=== PATIENT | male | born 1940 | race Caucasian/White ===

== ENCOUNTER 2018-04-29 16:31 | Inpatient (IN) | payer MEDICARE ==
[2018-04-29 16:58] VITALS: BMI 24.4
[2018-04-29] MEDS ORDERED: Albuterol-Ipratrop 3 mg / 0.5 (3 ml) UD IH STA (17:23)
--- NOTE | 2018-04-29 17:41 | ED PDOC ---
Arrival/HPI - General Chief Complaint: Shortness Of Breath Time Seen by Provider: 04/29/18 17:08 Historian: Patient - History of Present Illness Narrative History of Present Illness (Text): 04/29/18 17:23 77 year old male, with past medical history of CAD s/p stent placement and asthma, presents to the ED complaining of chest pain and shortness of breath since 1 hour prior to arrival. Patient describes the pain as pressure sensation with no radiation of symptoms. Patient denies taking his aspirin today. Patient informs associated diarrhea. Patient worries symptoms maybe secondary to taking Levoquin at home, which he started last week for productive cough. Patient currently denies any other somatic complaints. Patient denies any fevers, chills, headache, dizziness, abdominal pain, nausea, vomiting, urinary output changes, back pain, neck pain, or any other complaints. PMD: Dr. David Guadarrama Time/Duration: 1 hour Symptom Onset: Gradual Symptom Course: Unchanged Quality: Pressure Activities at Onset: Light Context: Home Past Medical History - Provider Review Nursing Documentation Reviewed: Yes - Infectious Disease Hx of Infectious Diseases: None - Cardiac Hx Cardiac Disorders: No - Pulmonary Hx Respiratory Disorders: No - Neurological Hx Neurological Disorder: No - HEENT Hx HEENT Disorder: No - Renal Hx Renal Disorder: No - Endocrine/Metabolic Hx Endocrine Disorders: No - Hematological/Oncological Hx Blood Disorders: No - Integumentary Hx Dermatological Disorder: No - Musculoskeletal/Rheumatological Hx Musculoskeletal Disorders: No - Gastrointestinal Hx Gastrointestinal Disorders: No - Genitourinary/Gynecological Hx Genitourinary Disorders: No - Psychiatric Hx Psychophysiologic Disorder: No Hx Substance Use: No - Surgical History Hx Coronary Stent: Yes Family/Social History - Physician Review Nursing Documentation Reviewed: Yes Family/Social History: No Known Family HX Smoking Status: Cigar Hx Alcohol Use: No Hx Substance Use: No Allergies/Home Meds Allergies/Adverse Reactions: Allergies Unobtainable Allergy (Verified 04/29/18 17:05) Home Medications: Home Meds Medication Instructions Recorded Confirmed No Known Home Med 04/29/18 04/29/18 Review of Systems - Physician Review All systems were reviewed & negative as marked: Yes - Review of Systems Constitutional: absent: Fevers Respiratory: SOB Cardiovascular: Chest Pain Gastrointestinal: Diarrhea. absent: Abdominal Pain, Nausea, Vomiting Genitourinary Male: absent: Dysuria, Urinary Output Changes Musculoskeletal: absent: Back Pain, Neck Pain Skin: absent: Rash Neurological: absent: Headache, Dizziness Psychiatric: absent: Anxiety Physical Exam Vital Signs Reviewed: Yes Vital Signs Temp Pulse Resp BP Pulse Ox 04/29/18 17:04 98.0 F 73 18 143/67 98 Temperature: Afebrile Blood Pressure: Normal Pulse: Regular Respiratory Rate: Normal Appearance: Positive for: Well-Appearing, Non-Toxic, Comfortable Pain Distress: None Mental Status: Positive for: Alert and Oriented X 3 - Systems Exam Head: Present: Atraumatic, Normocephalic Pupils: Present: PERRL Extroacular Muscles: Present: EOMI Conjunctiva: Present: Normal Mouth: Present: Moist Mucous Membranes Neck: Present: Normal Range of Motion. No: Meningeal Signs, MIDLINE TENDERNESS Respiratory/Chest: Present: Good Air Exchange, Wheezes (Mild wheezes at the bases bilaterally). No: Respiratory Distress, Accessory Muscle Use Cardiovascular: Present: Regular Rate and Rhythm, Normal S1, S2. No: Murmurs Abdomen: No: Tenderness, Distention, Peritoneal Signs Back: Present: Normal Inspection. No: CVA Tenderness, Midline Tenderness Upper Extremity: Present: Normal Inspection, Normal ROM, NORMAL PULSES. No: Cyanosis, Edema Lower Extremity: Present: Edema (2+ pitting edema bilaterally), NORMAL PULSES, Neurovascularly Intact. No: Tenderness Neurological: Present: GCS=15, CN II-XII Intact, Speech Normal Skin: Present: Warm, Dry, Normal Color. No: Rashes Psychiatric: Present: Alert, Oriented x 3, Normal Insight, Normal Concentration Medical Decision Making ED Course and Treatment: 04/29/18 17:23 Impression: 77 year old male presents to the ED for evaluation of chest pain and shortness of breath. x1 stent previously. No fall. Pt notes recent abx w/ diarrhea. No nausea or vomiting. GALLARDO and mild b/l pitting edema. No hx of blood clots. Plan: -- EKG -- Labs -- CXR -- Albuterol -- Reassess and disposition Prior Visits: Notes and results from previous visits were reviewed. Progress Notes: 04/29/18 17:23 EKG reviewed, shows NSR at 82 bpm. No STEMI. 04/29/18 19:32 6k BNP trop unremarkable Cr 2.3, unk baseline, K unremarkable, making urine per pt. Hgb 6.1, consent done, 2 units of blood ordered. No blood thinners No dark or bloody stool or trauma. Accepted by Dr. Palumbo to her service CXR unremarkable. ASA ordered. - RAD Interpretation Radiology Orders: 04/29/18 17:23 CHEST TWO VIEWS (PA/LAT) [RAD] Stat - Medication Orders Current Medication Orders: Discontinued Medications Albuterol/Ipratropium (Duoneb 3 Mg/0.5 Mg (3 Ml) Ud) 3 ml IH STAT STA Stop: 04/29/18 17:24 Last Admin: 04/29/18 17:37 Dose: 3 ml - Scribe Statement The provider has reviewed the documentation as recorded by the Scribe Lexx Vasquez. All medical record entries made by the Scribe were at my direction and personally dictated by me. I have reviewed the chart and agree that the record accurately reflects my personal performance of the history, physical exam, medical decision making, and the department course for this patient. I have also personally directed, reviewed, and agree with the discharge instructions and disposition. Disposition/Present on Arrival - Present on Arrival Any Indicators Present on Arrival: No History of DVT/PE: No History of Uncontrolled Diabetes: No Urinary Catheter: No History of Decub. Ulcer: No History Surgical Site Infection Following: None - Disposition Have Diagnosis and Disposition been Completed?: Yes Diagnosis: Anemia, CHF (congestive heart failure) Disposition Time: 19:34 Patient Problems: Current Active Problems Problem Status Onset Anemia Acute CHF (congestive heart failure) Acute Condition: GOOD
[2018-04-29 17:56] LABS: BASO # 0.1 K/mm3 (0.0-2.0); BASO % 0.7 % (0.0-3.0); EOS # 0.2 (0.0-0.7); EOS % 1.4 % (1.5-5.0); LYMPH # 0.9 (1.2-3.4); LYMPH % 6.7 % (22.0-35.0); MEAN CELL VOLUME 77.6 fl (80.0-105.0); MEAN CORPUSCULAR HEMOGLOBIN 24.8 pg (25.0-35.0); MEAN PLATELET VOLUME 9.3 fl (7.0-11.0); MONO # 0.7 (0.1-0.6); RBC 2.54 10^6/uL (3.5-6.1); RED CELL DISTRIBUTION WIDTH 34.2 % (11.5-14.5)
[2018-04-29 18:09] LABS: ALB/GLOB RATIO 1.4 (1.1-1.8); CALCIUM 8.2 mg/dL (8.4-10.5)
[2018-04-29 18:15] LABS: HEMOGLOBIN 6.3 g/dL (14.0-18.0)
[2018-04-29 18:19] LABS: TROPONIN I 0.06 ng/mL
[2018-04-29 18:54] LABS: INR 1.29; PARTIAL THROMBOPLASTIN TIME 35.4 Seconds (26.9-38.3); PROTHROMBIN TIME 14.3 SECONDS (9.4-12.5)
--- NOTE | 2018-04-29 20:33 | CP.PCM.HP ---
<DenysJohnny - Last Filed: 04/30/18 05:29> History of Present Illness - History of Present Illness History of Present Illness: Johnny Mcfarlane, PGY1 H&P for Dr. Palumbo cc: "chest pain and shortness of breath" Patient is a 77 year old male with PMHx of CAD (stent placed 10 years ago), Asthma, SERENA, ?CKD, and cataracts who presented to the ED complaining of chest pain and shortness of breath for 2 hours in duration. In the ED, Vitals: Temp 98, HR 73, RR 18, BP 143/67, SaO2 98%. Medical team was consulted for evaluation. Patient describes the chest pain as pressure-like and located mid- sternum and left sided. He says that it occasionally radiates to his arm. The chest pain is not associated with exertion. Patient says that he has had episodes of chest pain in the past. He also endorses shortness of breath. He said that he noticed increased swelling in his legs. He also notes orthopnea. Patient said he was sick recently with cough and sputum production and went to his PMD who treated him with PO antibiotic (Levaquin) for which he started to have multiple episodes of diarrhea. He said he had episodes of non-bloody diarrhea x3 days for several days. He is no longer taking his Levaquin. Patient is also a poor historian. 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 He denies any history of cancer, recent surgeries, or recent sedentary lifestyle. He has never had a colonoscopy. A full 12 point ROS was conducted and unremarkable except as stated above. PMD: Dr. David Guadarrama PMHx: CAD (stent placed 10 years ago), Asthma, SERENA, ?CKD, and cataracts PSHx: left shoulder surgery (4 years ago) Meds: see MAR Allergies: NKDA SocialHx: denies smoking cigarettes but occasionally smokes cigars. Drinks EtOH socially. Denies recreational drug use. Lives in [place] with family. FamHx: non-contributory Present on Admission - Present on Admission Any Indicators Present on Admission: No Review of Systems - Review of Systems All systems: reviewed and no additional remarkable complaints except (as per HPI.) Past Patient History - Infectious Disease Hx of Infectious Diseases: None - Past Social History Smoking Status: Cigar - CARDIAC Hx Cardiac Disorders: No - PULMONARY Hx Respiratory Disorders: No - NEUROLOGICAL Hx Neurological Disorder: No - HEENT Hx HEENT Problems: No - RENAL Hx Chronic Kidney Disease: No - ENDOCRINE/METABOLIC Hx Endocrine Disorders: No - HEMATOLOGICAL/ONCOLOGICAL Hx Blood Disorders: No - INTEGUMENTARY Hx Dermatological Problems: No - MUSCULOSKELETAL/RHEUMATOLOGICAL Hx Musculoskeletal Disorders: No - GASTROINTESTINAL Hx Gastrointestinal Disorders: No - GENITOURINARY/GYNECOLOGICAL Hx Genitourinary Disorders: No - PSYCHIATRIC Hx Psychophysiologic Disorder: No Hx Substance Use: No - SURGICAL HISTORY Hx Coronary Stent: Yes Meds Allergies/Adverse Reactions: Allergies Allergy/AdvReac Type Severity Reaction Status Date / Time Unobtainable Allergy Verified 04/29/18 17:05 Physical Exam - Constitutional Appears: No Acute Distress - Head Exam Head Exam: ATRAUMATIC, NORMAL INSPECTION, NORMOCEPHALIC - Eye Exam Eye Exam: EOMI Pupil Exam: PERRL Additional comments: Pale conjunctiva - ENT Exam ENT Exam: Mucous Membranes Moist - Neck Exam Neck exam: Positive for: Normal Inspection - Respiratory Exam Respiratory Exam: Clear to Auscultation Bilateral. absent: Accessory Muscle Use, Chest Wall Tenderness, Rales, Rhonchi, Wheezes - Cardiovascular Exam Cardiovascular Exam: RRR, +S1, +S2 - GI/Abdominal Exam GI & Abdominal Exam: Normal Bowel Sounds, Soft. absent: Bruit, Firm, Guarding, Hernia, Rigid, Tenderness - Extremities Exam Extremities exam: Positive for: pedal pulses present. Negative for: calf tenderness Additional comments: Swelling of the left lower extremity in comparison to the right. Mild pitting edema, +1 bilaterally. - Back Exam Back exam: NORMAL INSPECTION - Neurological Exam Neurological exam: Alert, Normal Gait, Oriented x3, Reflexes Normal - Psychiatric Exam Psychiatric exam: Normal Affect, Normal Mood - Skin Skin Exam: Dry, Intact, Normal Color, Warm Results - Vital Signs Recent Vital Signs: Last Vital Signs Temp 98.0 F 04/29/18 20:18 Pulse 81 04/29/18 20:18 Resp 18 04/29/18 20:18 BP 140/59 L 04/29/18 20:18 Pulse Ox 97 04/29/18 20:18 - Labs Result Diagrams: 04/30/18 02:50 04/29/18 17:50 Labs: Laboratory Results - last 24 hr 04/29/18 04/29/18 04/29/18 17:50 17:50 18:00 WBC 14.0 H RBC 2.54 L Hgb 6.3 L* Hct 19.7 L* MCV 77.6 L MCH 24.8 L MCHC 32.0 RDW 34.2 H Plt Count 436 MPV 9.3 Neut % (Auto) 86.2 H Lymph % (Auto) 6.7 L Hancock % (Auto) 5.0 Eos % (Auto) 1.4 L Baso % (Auto) 0.7 Lymph # (Auto) 0.9 L Hancock # (Auto) 0.7 H Eos # (Auto) 0.2 Baso # (Auto) 0.10 Absolute Neuts (auto) 12.07 H PT 14.3 H INR 1.29 APTT 35.4 Sodium 135 Potassium 5.2 H Chloride 106 Carbon Dioxide 21 Anion Gap 13 BUN 41 H Creatinine 2.3 H Est GFR ( Amer) 34 Est GFR (Non-Af Amer) 28 Random Glucose 100 Calcium 8.2 L Total Bilirubin 0.4 AST 35 ALT 13 Alkaline Phosphatase 90 Troponin I 0.06 NT-Pro-B Natriuret Pep 5990 H Total Protein 6.9 Albumin 4.0 Globulin 2.8 Albumin/Globulin Ratio 1.4 Crossmatch BBK History Checked 04/29/18 19:00 WBC RBC Hgb Hct MCV MCH MCHC RDW Plt Count MPV Neut % (Auto) Lymph % (Auto) Hancock % (Auto) Eos % (Auto) Baso % (Auto) Lymph # (Auto) Hancock # (Auto) Eos # (Auto) Baso # (Auto) Absolute Neuts (auto) PT INR APTT Sodium Potassium Chloride Carbon Dioxide Anion Gap BUN Creatinine Est GFR ( Amer) Est GFR (Non-Af Amer) Random Glucose Calcium Total Bilirubin AST ALT Alkaline Phosphatase Troponin I NT-Pro-B Natriuret Pep Total Protein Albumin Globulin Albumin/Globulin Ratio Crossmatch See Detail BBK History Checked No verified bt Assessment & Plan - Assessment and Plan (Free Text) Assessment: Patient is a 77 year old male with PMHx of CAD (stent placed 10 years ago), Asthma, SERENA, ?CKD, and cataracts who presented to the ED complaining of chest pain and shortness of breath for 2 hours in duration. Patient will be admitted for Chest Pain r/o ACS, Shortness of Breath 2/2 New Onset CHF Exacerbation, and Symptomatic Anemia. Plan: Chest Pain r/o ACS - Initial troponin was 0.6; trend trops q6 - ASA 81mg daily - EKG: NSR at [address] or T wave changes. - TSH - Lipid panel - Hemoglobin A1c - CXR: no active cardiopulmonary disease. Hyperinflated lungs and mild flattening of diaphragm. Shortness of Breath 2/2 New Onset CHF Exacerbation - Lasix 20mg IV q12 - duonebs prn - BNP 5990 - nasal cannula prn - daily weights - strict ins/outs - Echo - Cardiology on consult (Dr. Ashley) - LE venous doppler to rule out DVT given left lower ext swelling - D-dimer; consider ordering V/Q scan given ALFREDO if positive D-dimer - No history of previous echo Symptomatic Anemia - iron studies ordered - Given Hgb 6.3 on admission, will transfuse x2 units pRBC - Goal is to maintain Hgb > 9 considering patient has CAD - GI consulted (Dr. Venegas) to r/o GI malignancy - trend cbc q4 ALFREDO with ?CKD Hx - BUN/Cr is 41/2.3 - monitor kidney function - avoid nephrotoxic agents - Nephro consulted (Dr. Hodges) Diarrhea 2/2 Recent Antibiotic Use - c. diff toxin ordered - Recently treated with Levaquin PO Hx CAD - c/w ASA 81mg daily GI ppx: ptx Diet: Renal diet Dispo: Patient will be monitored on telemetry. Pending x2 units pRBC transfusion. Monitor H/H. Case was discussed and reviewed with Attending Physician, Dr. Palumbo <Anh Palumbo - Last Filed: 04/30/18 06:23> Results - Vital Signs Recent Vital Signs: Last Vital Signs Temp 98.5 F 04/30/18 01:14 Pulse 78 04/30/18 01:14 Resp 20 04/30/18 01:14 BP 155/71 H 04/30/18 01:14 Pulse Ox 97 04/29/18 20:18 - Labs Result Diagrams: 04/30/18 02:50 04/29/18 17:50 Labs: Laboratory Results - last 24 hr 04/29/18 04/29/18 04/29/18 17:50 17:50 18:00 WBC 14.0 H RBC 2.54 L Hgb 6.3 L* Hct 19.7 L* MCV 77.6 L MCH 24.8 L MCHC 32.0 RDW 34.2 H Plt Count 436 MPV 9.3 Neut % (Auto) 86.2 H Lymph % (Auto) 6.7 L Hancock % (Auto) 5.0 Eos % (Auto) 1.4 L Baso % (Auto) 0.7 Lymph # (Auto) 0.9 L Hancock # (Auto) 0.7 H Eos # (Auto) 0.2 Baso # (Auto) 0.10 Absolute Neuts (auto) 12.07 H PT 14.3 H INR 1.29 APTT 35.4 D-Dimer, Quantitative Sodium 135 Potassium 5.2 H Chloride 106 Carbon Dioxide 21 Anion Gap 13 BUN 41 H Creatinine 2.3 H Est GFR ( Amer) 34 Est GFR (Non-Af Amer) 28 Random Glucose 100 Calcium 8.2 L Total Bilirubin 0.4 AST 35 ALT 13 Alkaline Phosphatase 90 Troponin I 0.06 NT-Pro-B Natriuret Pep 5990 H Total Protein 6.9 Albumin 4.0 Globulin 2.8 Albumin/Globulin Ratio 1.4 Triglycerides Cholesterol LDL Cholesterol Direct HDL Cholesterol TSH 3rd Generation Blood Type Blood Type Confirm Antibody Screen Crossmatch BBK History Checked 04/29/18 04/29/18 04/29/18 19:00 20:04 22:00 WBC RBC Hgb Hct MCV MCH MCHC RDW Plt Count MPV Neut % (Auto) Lymph % (Auto) Hancock % (Auto) Eos % (Auto) Baso % (Auto) Lymph # (Auto) Hancock # (Auto) Eos # (Auto) Baso # (Auto) Absolute Neuts (auto) PT INR APTT D-Dimer, Quantitative Sodium Potassium Chloride Carbon Dioxide Anion Gap BUN Creatinine Est GFR ( Amer) Est GFR (Non-Af Amer) Random Glucose Calcium Total Bilirubin AST ALT Alkaline Phosphatase Troponin I NT-Pro-B Natriuret Pep Total Protein Albumin Globulin Albumin/Globulin Ratio Triglycerides 64 Cholesterol 106 L LDL Cholesterol Direct 67 HDL Cholesterol 29 TSH 3rd Generation Blood Type O POSITIVE Blood Type Confirm O POSITIVE Antibody Screen Negative Crossmatch See Detail BBK History Checked No verified bt 04/29/18 04/29/18 22:00 22:30 WBC RBC Hgb Hct MCV MCH MCHC RDW Plt Count MPV Neut % (Auto) Lymph % (Auto) Hancock % (Auto) Eos % (Auto) Baso % (Auto) Lymph # (Auto) Hancock # (Auto) Eos # (Auto) Baso # (Auto) Absolute Neuts (auto) PT INR APTT D-Dimer, Quantitative 309 H Sodium Potassium Chloride Carbon Dioxide Anion Gap BUN Creatinine Est GFR ( Amer) Est GFR (Non-Af Amer) Random Glucose Calcium Total Bilirubin AST ALT Alkaline Phosphatase Troponin I NT-Pro-B Natriuret Pep Total Protein Albumin Globulin Albumin/Globulin Ratio Triglycerides Cholesterol LDL Cholesterol Direct HDL Cholesterol TSH 3rd Generation 0.22 L Blood Type Blood Type Confirm Antibody Screen Crossmatch BBK History Checked Attending/Attestation - Attestation I have personally seen and examined this patient.: Yes I have fully participated in the care of the patient.: Yes I have reviewed all pertinent clinical information: Yes Notes (Text): 04/30/18 01:17 Pt seen with mary silva by the bedside. Case discussed in detail Agree with documentation,assessment and plan of treatment
[2018-04-29] MEDS ORDERED: Albuterol-Ipratrop 3 mg / 0.5 (3 ml) UD IH PRN (21:12)
--- NOTE | 2018-04-29 22:45 | CARD ---
APPROVED REPORT Date of service: 04/29/2018 EKG Measurement Heart [id number] <Conclusion> Sinus rhythm with a single PVC Otherwise normal ECG
[2018-04-29 22:50] LABS: HDL CHOLESTEROL 29 mg/dL (29-60)
[2018-04-29 23:00] LABS: LDL CHOLESTEROL 67 mg/dL (0-129)
[2018-04-30 03:07] LABS: MEAN CELL VOLUME 78.6 fl (80.0-105.0); MEAN PLATELET VOLUME 8.8 fl (7.0-11.0); RBC 2.62 10^6/uL (3.5-6.1); RED CELL DISTRIBUTION WIDTH 32.4 % (11.5-14.5); WHITE BLOOD COUNT 12.4 10^3/uL (4.5-11.0)
[2018-04-30 03:18] LABS: HEMOGLOBIN 6.8 g/dL (14.0-18.0)
[2018-04-30] MEDS ORDERED: Pantoprazole 40 mg EC Tab PO SCH (06:00)
--- NOTE | 2018-04-30 07:57 | RAD ---
Date of service: 04/29/2018 HISTORY: cp COMPARISON: No prior. TECHNIQUE: Chest PA and lateral FINDINGS: LUNGS: No acute infiltrate appreciated bilaterally. There is an increased AP chest diameter and lamina diaphragms in a pattern suggestive of COPD. PLEURA: No significant pleural effusion identified. No pneumothorax apparent. CARDIOVASCULAR: Calcific atherosclerotic changes are seen related to the thoracic aorta. Normal cardiac size. No pulmonary vascular congestion. OSSEOUS STRUCTURES: No significant abnormalities. VISUALIZED UPPER ABDOMEN: Normal. OTHER FINDINGS: None. IMPRESSION: COPD. No definite acute infiltrate. No pulmonary vascular congestion.
[2018-04-30] MEDS ORDERED: Barium Sulfate Susp 2.1% w/v, 2.0% w/w 450 mL Bottle PO ONE (10:07)
[2018-04-30 10:08] LABS: HEMOGLOBIN 7.4 g/dL (14.0-18.0); MEAN CELL VOLUME 80.1 fl (80.0-105.0); MEAN CORPUSCULAR HEMOGLOBIN 25.9 pg (25.0-35.0); MEAN CORPUSCULAR HGB CONC 32.3 g/dl (31.0-37.0); MEAN PLATELET VOLUME 9.4 fl (7.0-11.0); RBC 2.86 10^6/uL (3.5-6.1); RED CELL DISTRIBUTION WIDTH 30.7 % (11.5-14.5); WHITE BLOOD COUNT 11.7 10^3/uL (4.5-11.0)
[2018-04-30] MEDS ORDERED: Sodium Chloride 0.9% 1,000 ML IV SCH (10:15)
[2018-04-30 10:16] LABS: ALB/GLOB RATIO 1.4 (1.1-1.8); ALBUMIN 3.7 g/dL (3.0-4.8); CALCIUM 7.9 mg/dL (8.4-10.5)
[2018-04-30 10:23] LABS: TROPONIN I 0.05 ng/mL
--- NOTE | 2018-04-30 10:39 | CON ---
DATE: 04/30/2018 REQUESTING PHYSICIAN: Dr. Hatch REASON FOR CONSULTATION: Dyspnea and congestive heart failure. HISTORY: This is a 77-year-old man with a history of coronary artery disease, status post PCI a number of years ago, who presented to the emergency room with worsening dyspnea and chest discomfort. He was recently treated with antibiotic for presumed bronchitis. It is unclear as to his compliance with followup in the past. He reportedly has had a history of renal insufficiency. He was treated with IV Lasix in the emergency room and feels somewhat better. He reportedly has a history of chronic asthma as well as sleep apnea. The details of his prior cardiac history are unavailable at the time of his admission. PAST MEDICAL HISTORY: Notable for the problems mentioned above. He also has cataracts and prior left shoulder surgery. MEDICATIONS: He cannot recall any of his medications from home. ALLERGIES: NO KNOWN ALLERGIES. SOCIAL HISTORY: He smokes cigars occasionally. He drinks alcohol rarely. He denies cigarette use. He is , lives with his family. FAMILY HISTORY: Both parents are from age-related illness. REVIEW OF SYSTEMS: Ten-point review of systems is notable mainly for the problems mentioned above. PHYSICAL EXAMINATION: GENERAL: He is an elderly man who appears comfortable at rest. VITAL SIGNS: His blood pressure is 128/60 with a pulse of 70 and sinus, respirations are 16. He is currently afebrile. HEENT: Normocephalic, atraumatic. NECK: Supple. No JVD noted. CHEST: Bilateral scattered rhonchi heard. No rales noted. HEART: PMI is displaced laterally with a systolic murmur present at the base as well as at the apex. ABDOMEN: Soft, nontender, normoactive bowel sounds. EXTREMITIES: 1+ ankle edema. SKIN: Warm and dry. PSYCHIATRIC: Normal mood and affect. NEUROLOGIC: Alert and oriented x3. No gross motor or sensory deficits notable. DIAGNOSTIC DATA: White count is 12.4, hemoglobin and hematocrit are 6.8 and 20.6 with an MCV of 78.6. Reticulocyte count is 1.35. PT and PTT of 14.3 and 35.4. Potassium 5.2. BUN and creatinine are 41 and 2.3. BNP 5990. Two troponins are negative. Cholesterol is 106 with an LDL of 67, HDL 29, triglycerides of 64. TSH 0.22. Chest x-ray reveals normal cardiac silhouette with hyperaeration consistent with COPD, no clear pulmonary vascular congestion is seen. Electrocardiogram reveals sinus rhythm with PVC, nonspecific ST-T abnormalities. IMPRESSION: 1. 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 2. Anemia, etiology uncertain. 3. Renal insufficiency, unclear of baseline. 4. Probable aortic stenosis. 5. Probable mitral regurgitation. 6. Rest of problems as noted. RECOMMENDATIONS: At this time, IV Lasix can be continued. Aggressive anemia evaluation is advised and transfusion should be considered. Attempts will be made to obtain records regarding his prior cardiac workup and eventual stress test will be recommended. An echocardiogram is pending and will be reviewed once performed. Given his history of coronary artery disease and questionable diastolic dysfunction, beta-matilde therapy will be initiated. We will continue to follow and make further recommendations as appropriate. Benitez Perez MD
--- NOTE | 2018-04-30 11:07 | US ---
HISTORY: Leg pain and swelling. Evaluate for DVT PHYSICIAN(S): Demarco López MD. TECHNIQUE: Duplex sonography and color-flow Doppler with graded compression were used to evaluate the deep venous systems of both lower extremities. FINDINGS: The visualized deep venous systems of both lower extremities are sonographically normal and compressible. Normal wave forms and augmentation are seen. There is no sonographic evidence for deep venous thrombosis in the visualized segments of both lower extremities. IMPRESSION: No sonographic evidence for deep venous thrombosis in the visualized segments of both lower extremities.
[2018-04-30 13:23] LABS: TRANSFERRIN 154.58 mg/dL (206-381)
[2018-04-30 14:17] LABS: IRON 48 ug/dL (45-180)
[2018-04-30] MEDS: Albuterol-Ipratrop 3 mg / 0.5 (3 ml) UD IH SCH ×2 (14:23→19:46)
[2018-04-30 14:26] LABS: % IRON SATURATION 22 % (20-55); TOTAL IRON BINDING CAPACITY 212 ug/dL (261-462)
[2018-04-30 14:27] LABS: FOLATE > 20.0 ng/mL
--- NOTE | 2018-04-30 14:51 | CARD ---
APPROVED REPORT Date of service: 04/30/2018 EXAM: Two-dimensional and M-mode echocardiogram with Doppler and color Doppler. INDICATION Congestive Heart Failure 2D DIMENSIONS Left Atrium (2D)4.2 (1.6-4.0cm)IVSd1.3 (0.7-1.1cm) LVDd4.6 (3.9-5.9cm)LVOT Diameter2.1 (1.8-2.4cm) PWd1.3 (0.7-1.1cm)LVDs3.4 (2.5-4.0cm) FS (%) 26.3 %LVEF (%)51.6 (>50%) M-Mode DIMENSIONS Aortic Root3.50 (2.2-3.7cm)Aortic Cusp Exc.1.30 (1.5-2.0cm) Aortic Valve AoV Peak Abfwelsr359.0cm/sAoV VTI60.0cmAO Peak GR.31mmHg LVOT Peak Vzszilkd414.0cm/sLVOT VTI27.00cmAO Mean GR.14mmHg URSULA (VMAX)1.64qh7OLO (VTI)1.56cm2 Mitral Valve MV E Pjocghot956.0cm/sMV A Ljudrmsr04.9cm/sE/A ratio1.3 TDI E/Lateral E'0.0E/Medial E'0.0 Tricuspid Valve TR Peak Rnazunlf829vb/sRAP [id number] Peak Gr.44mmHg [id number] LEFT VENTRICLE The left ventricle is normal size. There is borderline concentric left ventricular hypertrophy. The left ventricular function is normal. The left ventricular ejection fraction is within the normal range. There is normal LV segmental wall motion. Transmitral Doppler flow pattern is Grade II-pseudonormal filling dynamics. RIGHT VENTRICLE The right ventricle is normal size. There is normal right ventricular wall thickness. The right ventricular systolic function is normal. ATRIA The left atrium is borderline dilated. The right atrium is mildly dilated. AORTIC VALVE The aortic valve is mildly calcified. There is mild to moderate aortic regurgitation. There is mild valvular aortic stenosis. MITRAL VALVE The mitral valve is mildly thickened. Mitral regurgitation is moderate. TRICUSPID VALVE There is moderate tricuspid regurgitation. There is moderate pulmonary hypertension. PULMONIC VALVE The pulmonary valve is normal in structure. There is no pulmonic valvular regurgitation. GREAT VESSELS The aortic root is normal in size. PERICARDIAL EFFUSION There is no pericardial effusion. <Conclusion> There is borderline concentric left ventricular hypertrophy. The left ventricular function is normal. The left ventricular ejection fraction is within the normal range. There is normal LV segmental wall motion. Transmitral Doppler flow pattern is Grade II-pseudonormal filling dynamics. There is mild valvular aortic stenosis. There is mild to moderate aortic regurgitation. Mitral regurgitation is moderate. There is moderate tricuspid regurgitation. There is moderate pulmonary hypertension.
--- NOTE | 2018-04-30 14:52 | CON ---
DATE: 04/30/2018 REASON FOR CONSULTATION: Severe anemia, chronic kidney disease? HISTORY OF PRESENT ILLNESS: A 77-year-old male previously unknown to me. The patient was admitted yesterday with complaints of shortness of breath, cough, dyspnea on exertion. The patient went to his primary doctor and was sent to the emergency room in an ambulance. In the emergency room, he was found to be normotensive. Afebrile. His hemoglobin was found to be 6.3. The patient received 2 units of blood yesterday. His repeat hemoglobin today is 7.4. He is scheduled to get another unit of blood today. Also, his BUN was found to be 41 and creatinine of 2.3. Consultation is requested for renal insufficiency. PAST MEDICAL AND SURGICAL HISTORY: CAD, PTCA and stent 10 years ago, asthma, sleep apnea, cataract surgery. FAMILY HISTORY: Noncontributory. SOCIAL HISTORY: No smoking but smokes cigars, alcohol social, no IV drug abuse. ALLERGIES: NO KNOWN DRUG ALLERGIES. MEDICATIONS AT HOME: Not known. REVIEW OF SYSTEMS: All systems are reviewed, pertinent positives as mentioned in the history of presenting illness, rest unremarkable. PHYSICAL EXAMINATION: GENERAL: Elderly male, lying in bed, in mild respiratory distress. VITAL SIGNS: Blood pressure 129/89, heart rate 81, respiratory rate 20, temperature 98.1. HEENT: Normocephalic, atraumatic, positive pallor. NECK: Supple, no JVD. LUNGS: Bilateral equal air entry, no rales, no rhonchi. CARDIAC: S1, S2, regular rate and rhythm, no murmur, no rub. ABDOMEN: Obese, distended, soft, nontender, bowel sounds present. EXTREMITIES: No lower extremity edema. INTAKE AND OUTPUT: 1250/not charted. LABORATORY DATA: WBC 11.7, hemoglobin 7.4, hematocrit 22.9, platelets 371,000. Sodium 136, potassium 4.9, chloride 107, CO2 22, BUN 34, creatinine 3.1, glucose 119, calcium 7.9, phosphorus 5, magnesium 1.9. AST 42, ALT 21, albumin 3.7. No lower extremity DVT. CURRENT MEDICATIONS: Aspirin 81, DuoNeb, Lasix 20 IV every 12 hours, Lopressor 25 b.i.d., Protonix. ASSESSMENT: 1. Severe anemia, qvfbv-dh-tozeozt versus acute. 2. Suspect chronic kidney disease stage 3, ?acute component. 3. Coronary artery disease, history of percutaneous transluminal coronary angioplasty and stent. 4. Congestive heart failure. 5. Hyperphosphatemia. 6. Hypocalcemia. 7. Suspect secondary hyperparathyroidism. PLAN: 1. Check iron, TIBC, ferritin. 2. Check intact PTH. 3. Check urinalysis. 4. Renal ultrasound. 5. Get outpatient laboratory from PMD. 6. Monitor daily labs. 7. Avoid nephrotoxins. Stool occults x3. Thank you for the courtesy of this consultation. We will follow this patient closely with you. Elham oHdges MD
--- NOTE | 2018-04-30 15:11 | CT ---
Date of service: 04/30/2018 PROCEDURE: CT Abdomen and Pelvis with contrast HISTORY: microcytic anemia, assess for mass lesion COMPARISON: None. TECHNIQUE: Oral contrast only. Radiation dose: Total exam DLP = <inf_radiation_dlp> mGy-cm. This CT exam was performed using one or more of the following dose reduction techniques: Automated exposure control, adjustment of the mA and/or kV according to patient size, and/or use of iterative reconstruction technique. FINDINGS: LOWER THORAX: Trace right pleural effusion. LIVER: Simple cysts in the right hepatic lobe. The largest measures 2.2 cm. No suspicious masses identified nor is there evidence of bile duct dilatation. GALLBLADDER AND BILE DUCTS: Cholelithiasis without CT evidence of acute cholecystitis. PANCREAS: Unremarkable. No gross lesion or ductal dilatation. SPLEEN: Splenomegaly. Orthogonal measurements 6.1 x 11.2 x 16.7 cm. ADRENALS: Unremarkable. No mass. KIDNEYS AND URETERS: Lobulated masses right kidney including midpole and upper pole regions. Punctate calcification of associate with the midpole cyst/mass. These may represent hyperdense cysts. However, there are no comparison studies. Follow-up recommendations include either multiphasic CT or renal ultrasound. Simple cyst lower pole left kidney 2 cm. VASCULATURE: Unremarkable. No aortic aneurysm. Atherosclerotic calcification and mural plaque present. Findings are seen throughout the aorta BOWEL: Diverticulosis without an acute inflammatory component or other associated pathologic process. Constipation without fecal impaction or obstruction. Is APPENDIX: The appendix is not visualized. PERITONEUM: Unremarkable. No free fluid. No free air. LYMPH NODES: Unremarkable. No enlarged lymph nodes. BLADDER: Diffuse bladder wall thickening, likely related underfilling. No focal bladder wall abnormalities. REPRODUCTIVE: Unremarkable. BONES: No acute fracture. OTHER FINDINGS: None. IMPRESSION: Indeterminate right renal masses likely hyperdense/proteinaceous cysts. Follow-up recommended described above. Cholelithiasis without CT evidence of acute cholecystitis. Splenomegaly. Additional benign and/or incidental findings described above.
--- NOTE | 2018-04-30 16:07 | CP.PCM.CON ---
History of Present Illness - History of Present Illness History of Present Illness: Gastroenterology Fellow/PGY6 Consult Note 77 year old male with PMH of SERENA, Asthma, and CAD s/p PCI presenting with chest pain and shortness of breath. Patient notes sudden onset of shortness of breath with chest discomfort and associated leg swelling. Admits to loose stools for a few days in setting of recent antibiotics for productive cough. GI consultation for anemia. Denies sick contacts, recent travel, nausea, vomiting, hematemesis, abdominal pain, melena, hematochezia, or unintentional weight loss. Endorses prior colonoscopy within the last 7-10 years endorsed to be normal. No prior EGD. Family History- denies colon cancer, stomach cancer Social History- occasional cigar use, social alcohol use , denies illicit drug use Surgical History- left shoulder surgery, B/L cataract surgery Review of Systems - Review of Systems Review of Systems: 12-point review of systems negative except for as above Past Patient History - Infectious Disease Hx of Infectious Diseases: None - Past Social History Smoking Status: Cigar - CARDIAC Hx Cardiac Disorders: No - PULMONARY Hx Respiratory Disorders: No - NEUROLOGICAL Hx Neurological Disorder: No - HEENT Hx HEENT Problems: No - RENAL Hx Chronic Kidney Disease: No - ENDOCRINE/METABOLIC Hx Endocrine Disorders: No - HEMATOLOGICAL/ONCOLOGICAL Hx Blood Disorders: No - INTEGUMENTARY Hx Dermatological Problems: No - MUSCULOSKELETAL/RHEUMATOLOGICAL Hx Musculoskeletal Disorders: No - GASTROINTESTINAL Hx Gastrointestinal Disorders: No - GENITOURINARY/GYNECOLOGICAL Hx Genitourinary Disorders: No - PSYCHIATRIC Hx Psychophysiologic Disorder: No Hx Substance Use: No - SURGICAL HISTORY Hx Coronary Stent: Yes Meds Allergies/Adverse Reactions: Allergies Allergy/AdvReac Type Severity Reaction Status Date / Time Unobtainable Allergy Verified 04/29/18 17:05 - Medications Medications: Current Medications Albuterol/Ipratropium (Duoneb 3 Mg/0.5 Mg (3 Ml) Ud) 3 ml IH Q4H PRN PRN Reason: Shortness of Breath Albuterol/Ipratropium (Duoneb 3 Mg/0.5 Mg (3 Ml) Ud) 3 ml IH [id number] [facility] Last Admin: 04/30/18 14:23 Dose: Not Given Aspirin (Aspirin Chewable) 81 mg PO DAILY [facility] Last Admin: 04/30/18 11:10 Dose: Not Given Furosemide (Lasix) 20 mg IVP Q12 [facility] Last Admin: 04/30/18 11:17 Dose: 20 mg Metoprolol Tartrate (Lopressor) 25 mg PO BRKDIN [facility] Pantoprazole Sodium (Protonix Inj) 40 mg IVP Q12 [facility] Last Admin: 04/30/18 11:15 Dose: 40 mg Results - Vital Signs Recent Vital Signs: Last Vital Signs Temp 98.5 F 04/30/18 15:45 Pulse 72 04/30/18 15:45 Resp 20 04/30/18 15:45 BP 129/69 04/30/18 15:45 Pulse Ox 98 04/30/18 06:00 - Labs Result Diagrams: 04/30/18 09:50 04/30/18 09:50 Labs: Laboratory Results - last 24 hr 04/29/18 04/29/18 04/29/18 17:50 17:50 18:00 WBC 14.0 H RBC 2.54 L Hgb 6.3 L* Hct 19.7 L* MCV 77.6 L MCH 24.8 L MCHC 32.0 RDW 34.2 H Plt Count 436 MPV 9.3 Neut % (Auto) 86.2 H Lymph % (Auto) 6.7 L [place] % (Auto) 5.0 Eos % (Auto) 1.4 L Baso % (Auto) 0.7 Lymph # (Auto) 0.9 L [place] # (Auto) 0.7 H Eos # (Auto) 0.2 Baso # (Auto) 0.10 Absolute Neuts (auto) 12.07 H Retic Count PT 14.3 H INR 1.29 APTT 35.4 D-Dimer, Quantitative Sodium 135 Potassium 5.2 H Chloride 106 Carbon Dioxide 21 Anion Gap 13 BUN 41 H Creatinine 2.3 H Est GFR ( Amer) 34 Est GFR (Non-Af Amer) 28 Random Glucose 100 Hemoglobin A1c Calcium 8.2 L Phosphorus Magnesium Iron TIBC % Saturation Transferrin Ferritin Total Bilirubin 0.4 AST 35 ALT 13 Alkaline Phosphatase 90 Lactate Dehydrogenase Troponin I 0.06 NT-Pro-B Natriuret Pep 5990 H Total Protein 6.9 Albumin 4.0 Globulin 2.8 Albumin/Globulin Ratio 1.4 Triglycerides Cholesterol LDL Cholesterol Direct HDL Cholesterol Vitamin B12 Folate Free T4 TSH 3rd Generation Blood Type Blood Type Confirm Antibody Screen Crossmatch BBK History Checked 02/08/1004/29/18 04/29/18 19:00 20:04 22:00 WBC RBC Hgb Hct MCV MCH MCHC RDW Plt Count MPV Neut % (Auto) Lymph % (Auto) [place] % (Auto) Eos % (Auto) Baso % (Auto) Lymph # (Auto) [place] # (Auto) Eos # (Auto) Baso # (Auto) Absolute Neuts (auto) Retic Count PT INR APTT D-Dimer, Quantitative Sodium Potassium Chloride Carbon Dioxide Anion Gap BUN Creatinine Est GFR ( Amer) Est GFR (Non-Af Amer) Random Glucose Hemoglobin A1c Calcium Phosphorus Magnesium Iron TIBC % Saturation Transferrin Ferritin 453.0 Total Bilirubin AST ALT Alkaline Phosphatase Lactate Dehydrogenase Troponin I NT-Pro-B Natriuret Pep Total Protein Albumin Globulin Albumin/Globulin Ratio Triglycerides 64 Cholesterol 106 L LDL Cholesterol Direct 67 HDL Cholesterol 29 Vitamin B12 732 Folate > 20.0 Free T4 TSH 3rd Generation Blood Type O POSITIVE Blood Type Confirm O POSITIVE Antibody Screen Negative Crossmatch See Detail BBK History Checked No verified bt 04/29/18 04/29/18 04/29/18 22:00 22:00 22:30 WBC RBC Hgb Hct MCV MCH MCHC RDW Plt Count MPV Neut % (Auto) Lymph % (Auto) [place] % (Auto) Eos % (Auto) Baso % (Auto) Lymph # (Auto) [place] # (Auto) Eos # (Auto) Baso # (Auto) Absolute Neuts (auto) Retic Count PT INR APTT D-Dimer, Quantitative 309 H Sodium Potassium Chloride Carbon Dioxide Anion Gap BUN Creatinine Est GFR ( Amer) Est GFR (Non-Af Amer) Random Glucose Hemoglobin A1c 7.1 H Calcium Phosphorus Magnesium Iron TIBC % Saturation Transferrin 154.58 L Ferritin Total Bilirubin AST ALT Alkaline Phosphatase Lactate Dehydrogenase Troponin I NT-Pro-B Natriuret Pep Total Protein Albumin Globulin Albumin/Globulin Ratio Triglycerides Cholesterol LDL Cholesterol Direct HDL Cholesterol Vitamin B12 Folate Free T4 TSH 3rd Generation 0.22 L Blood Type Blood Type Confirm Antibody Screen Crossmatch BBK History Checked 04/30/18 04/30/18 04/30/18 02:50 02:50 09:50 WBC 12.4 H RBC 2.62 L Hgb 6.8 L* Hct 20.6 L* MCV 78.6 L MCH 26.0 MCHC 33.0 RDW 32.4 H Plt Count 376 MPV 8.8 Neut % (Auto) Lymph % (Auto) [place] % (Auto) Eos % (Auto) Baso % (Auto) Lymph # (Auto) [place] # (Auto) Eos # (Auto) Baso # (Auto) Absolute Neuts (auto) Retic Count 1.35 PT INR APTT D-Dimer, Quantitative Sodium 136 Potassium 4.9 Chloride 107 Carbon Dioxide 22 Anion Gap 12 BUN 34 H Creatinine 2.1 H Est GFR ( Amer) 37 Est GFR (Non-Af Amer) 31 Random Glucose 119 H Hemoglobin A1c Calcium 7.9 L Phosphorus 5.0 H Magnesium 1.9 Iron TIBC % Saturation Transferrin Ferritin Total Bilirubin 0.3 AST 42 ALT 21 Alkaline Phosphatase 90 Lactate Dehydrogenase 603 Troponin I 0.08 D 0.05 D NT-Pro-B Natriuret Pep Total Protein 6.3 Albumin 3.7 Globulin 2.7 Albumin/Globulin Ratio 1.4 Triglycerides Cholesterol LDL Cholesterol Direct HDL Cholesterol Vitamin B12 Folate Free T4 TSH 3rd Generation Blood Type Blood Type Confirm Antibody Screen Crossmatch BBK History Checked 04/30/18 04/30/18 04/30/18 09:50 09:50 14:00 WBC 11.7 H RBC 2.86 L Hgb 7.4 L Hct 22.9 L MCV 80.1 MCH 25.9 MCHC 32.3 RDW 30.7 H Plt Count 371 MPV 9.4 Neut % (Auto) Lymph % (Auto) [place] % (Auto) Eos % (Auto) Baso % (Auto) Lymph # (Auto) [place] # (Auto) Eos # (Auto) Baso # (Auto) Absolute Neuts (auto) Retic Count PT INR APTT D-Dimer, Quantitative Sodium Potassium Chloride Carbon Dioxide Anion Gap BUN Creatinine Est GFR ( Amer) Est GFR (Non-Af Amer) Random Glucose Hemoglobin A1c Calcium Phosphorus Magnesium Iron 48 TIBC 212 L % Saturation 22 Transferrin Ferritin Total Bilirubin AST ALT Alkaline Phosphatase Lactate Dehydrogenase Troponin I NT-Pro-B Natriuret Pep Total Protein Albumin Globulin Albumin/Globulin Ratio Triglycerides Cholesterol LDL Cholesterol Direct HDL Cholesterol Vitamin B12 Folate Free T4 1.35 TSH 3rd Generation Blood Type Blood Type Confirm Antibody Screen Crossmatch BBK History Checked Assessment & Plan - Assessment and Plan (Free Text) Assessment: 77 year old male with PMH of SERENA, Asthma, and CAD s/p PCI presenting with chest pain and shortness of breath. Endorses prior colonoscopy within the last 7-10 years endorsed to be normal. No prior EGD. Plan: -receiving 2 U pRBCs -provide transfusion support -iron deficiency -continue PPI -ordered CT A/P to assess for intra-abdominal pathology -cardiopulmonary optimization prior to consideration for endoscopic evaluation -cardiology managing- follow up recommendations -will follow clinical course
[2018-04-30 21:22] LABS: HEMOGLOBIN 8.2 g/dL (14.0-18.0); MEAN CELL VOLUME 79.7 fl (80.0-105.0); MEAN CORPUSCULAR HGB CONC 32.7 g/dl (31.0-37.0); MEAN PLATELET VOLUME 9.2 fl (7.0-11.0); RBC 3.15 10^6/uL (3.5-6.1); WHITE BLOOD COUNT 12.4 10^3/uL (4.5-11.0)
[2018-05-01] MEDS: Albuterol-Ipratrop 3 mg / 0.5 (3 ml) UD IH SCH ×4 (01:09→20:18)
[2018-05-01 06:32] LABS: HEMOGLOBIN 8.3 g/dL (14.0-18.0); MEAN CELL VOLUME 81.1 fl (80.0-105.0); MEAN CORPUSCULAR HEMOGLOBIN 26.2 pg (25.0-35.0); MEAN CORPUSCULAR HGB CONC 32.3 g/dl (31.0-37.0); MEAN PLATELET VOLUME 9.7 fl (7.0-11.0); RBC 3.17 10^6/uL (3.5-6.1); RED CELL DISTRIBUTION WIDTH 29.1 % (11.5-14.5); WHITE BLOOD COUNT 12.9 10^3/uL (4.5-11.0)
[2018-05-01 07:09] LABS: ALB/GLOB RATIO 1.4 (1.1-1.8); ALBUMIN 3.6 g/dL (3.0-4.8); CALCIUM 7.9 mg/dL (8.4-10.5)
--- NOTE | 2018-05-01 09:43 | US ---
Date of service: 04/30/2018 PROCEDURE: Ultrasound of the Kidneys HISTORY: ALFREDO COMPARISON: CT abdomen and pelvis performed earlier the same day. TECHNIQUE: Sonogram of the kidneys. FINDINGS: RIGHT KIDNEY: Measures: 11.5 cm. Normal in size, contour and echogenicity. There is a 2 4 x 1.5 x 2.5 cm cyst with eccentric course calcifications. No solid mass lesion or hydronephrosis visualized. LEFT KIDNEY: Measures: 12.1 cm. Normal in size, contour and echogenicity. No stone, solid mass lesion or hydronephrosis visualized. There is a 2.0 x 1.3 x 1.6 cm simple cyst in the lower pole. OTHER FINDINGS: None. IMPRESSION: 0.5 cm cyst with eccentric coarse calcifications in the lower pole of the right kidney and 2.0 cm simple cyst in the lower pole of the left kidney. A preliminary report was provided by [employer].
--- NOTE | 2018-05-01 11:29 | RAD ---
Date of service: 05/01/2018 HISTORY: chf COMPARISON: 04/29/2018 FINDINGS: LUNGS: Patchy infiltrate in the right upper lobe suspicious for pneumonia PLEURA: No significant pleural effusion identified, no pneumothorax apparent. CARDIOVASCULAR: No aortic atherosclerotic calcification present. Normal cardiac size. No pulmonary vascular congestion. OSSEOUS STRUCTURES: No significant abnormalities. VISUALIZED UPPER ABDOMEN: Normal. OTHER FINDINGS: None. IMPRESSION: Patchy infiltrate in the right upper lobe suspicious for pneumonia
--- NOTE | 2018-05-01 13:05 | CP.PCM.PN ---
<Linh Nichols - Last Filed: 05/01/18 13:10> Subjective - Date & Time of Evaluation Date of Evaluation: 05/01/18 Time of Evaluation: 13:01 - Subjective Subjective: Gastroenterology Fellow/PGY6 Progress Note for Dr. Venegas Patient sitting in chair comfortably. Notes improved chest pain and shortness of breath. Tolerating diet. Admits to bowel movement without melena or hematochezia. A 12-point review of systems negative except for as above. Objective - Vital Signs/Intake and Output Vital Signs (last 24 hours): Temp Pulse Resp BP Pulse Ox 98.2 F 62 18 130/68 96 05/01/18 12:00 05/01/18 12:00 05/01/18 12:00 05/01/18 12:00 05/01/18 06:00 Intake and Output: 05/01/18 05/01/18 06:59 18:59 Intake Total 750 Balance 750 - Medications Medications: Current Medications Albuterol/Ipratropium (Duoneb 3 Mg/0.5 Mg (3 Ml) Ud) 3 ml IH Q4H PRN PRN Reason: Shortness of Breath Albuterol/Ipratropium (Duoneb 3 Mg/0.5 Mg (3 Ml) Ud) 3 ml IH [id number] [facility] Last Admin: 05/01/18 07:32 Dose: 3 ml Aspirin (Aspirin Chewable) 81 mg PO DAILY [facility] Last Admin: 04/30/18 11:10 Dose: Not Given Furosemide (Lasix) 20 mg IVP Q12 [facility] Last Admin: 05/01/18 10:42 Dose: 20 mg Metoprolol Tartrate (Lopressor) 25 mg PO BRKDIN [facility] Last Admin: 05/01/18 10:37 Dose: 25 mg Pantoprazole Sodium (Protonix Inj) 40 mg IVP Q12 [facility] Last Admin: 05/01/18 10:38 Dose: 40 mg - Labs Labs: 05/01/18 06:10 05/01/18 06:10 PT 14.3 SECONDS (9.4-12.5) H 04/29/18 18:00 INR 1.29 04/29/18 18:00 APTT 35.4 Seconds (26.9-38.3) 04/29/18 18:00 - Constitutional Appears: Non-toxic, No Acute Distress - Head Exam Head Exam: ATRAUMATIC, NORMOCEPHALIC - Eye Exam Eye Exam: EOMI, PERRL. absent: Scleral icterus Pupil Exam: PERRL. absent: Miosis, Mydriatic - ENT Exam ENT Exam: Mucous Membranes Moist, Normal Oropharynx - Neck Exam Neck Exam: Full ROM, Normal Inspection - Respiratory Exam Respiratory Exam: Clear to Ausculation Bilateral. absent: Rales, Rhonchi, Wheezes - Cardiovascular Exam Cardiovascular Exam: RRR, +S1, +S2. absent: Gallop, Rubs - GI/Abdominal Exam GI & Abdominal Exam: Soft, Normal Bowel Sounds. absent: Distended, Firm, Guarding, Rigid, Tenderness, Organomegaly, Rebound - Extremities Exam Extremities Exam: Normal Inspection. absent: Pedal Edema - Neurological Exam Neurological Exam: Alert, Awake - Psychiatric Exam Psychiatric exam: Normal Affect, Normal Mood - Skin Skin Exam: Dry, Intact, Normal Color, Warm Assessment and Plan - Assessment and Plan (Free Text) Assessment: 77 year old male with PMH of SERENA, Asthma, and CAD s/p PCI presenting with chest pain and shortness of breath. Active treatment of CHF decompensation, microcytic anemia, and renal insufficiency. Endorses prior colonoscopy within the last 7-10 years endorsed to be normal. No prior EGD. Plan: -no overt signs of acute GI bleed -likely chronic occult blood loss -s/p 3 units pRBCs -H/H stable -CT A/P - no acute intra-abdominal pathology -continue PPI BID -would benefit from future FOBT, at present may be falsely positive in setting of recent blood transfusion -follow up cardiology recommendation on cardiopulmonary clearance prior to endoscopic evaluation -will follow clinical course Case discussed with Dr. Venegas <Kezia Venegas V - Last Filed: 05/01/18 23:47> Objective - Vital Signs/Intake and Output Vital Signs (last 24 hours): Temp Pulse Resp BP Pulse Ox 97.9 F 70 18 117/57 L 96 05/01/18 17:57 05/01/18 17:57 05/01/18 17:57 05/01/18 22:56 05/01/18 06:00 Intake and Output: 05/01/18 05/02/18 18:59 06:59 Intake Total 1500 Balance 1500 - Medications Medications: Current Medications Albuterol/Ipratropium (Duoneb 3 Mg/0.5 Mg (3 Ml) Ud) 3 ml IH Q4H PRN PRN Reason: Shortness of Breath Albuterol/Ipratropium (Duoneb 3 Mg/0.5 Mg (3 Ml) Ud) 3 ml IH [id number] [facility] Last Admin: 05/01/18 20:18 Dose: 3 ml Aspirin (Aspirin Chewable) 81 mg PO DAILY [facility] Last Admin: 04/30/18 11:10 Dose: Not Given Calcium Acetate (Phoslo) 667 mg PO WM [facility] Last Admin: 05/01/18 17:00 Dose: 667 mg Furosemide (Lasix) 20 mg IVP Q12 [facility] Last Admin: 05/01/18 22:56 Dose: 20 mg Ceftriaxone Sodium (Rocephin 1 Gram Ivpb) 1 gm in 100 mls @ 100 mls/hr IVPB DAILY [facility]; Protocol Last Admin: 05/01/18 17:48 Dose: 100 mls/hr Metoprolol Tartrate (Lopressor) 25 mg PO BRKDIN [facility] Last Admin: 05/01/18 16:59 Dose: 25 mg Pantoprazole Sodium (Protonix Inj) 40 mg IVP Q12 [facility] Last Admin: 05/01/18 22:58 Dose: 40 mg - Labs Labs: 05/01/18 06:10 05/01/18 06:10 PT 14.3 SECONDS (9.4-12.5) H 04/29/18 18:00 INR 1.29 04/29/18 18:00 APTT 35.4 Seconds (26.9-38.3) 04/29/18 18:00 Attending/Attestation - Attestation I have personally seen and examined this patient.: Yes I have fully participated in the care of the patient.: Yes I have reviewed all pertinent clinical information, including history, physical exam and plan: Yes Notes (Text): p 05/01/18 23:47
--- NOTE | 2018-05-01 15:37 | CP.PCM.PN ---
Subjective - Date & Time of Evaluation Date of Evaluation: 05/01/18 Time of Evaluation: 10:00 - Subjective Subjective: Nir Ordonez, PGY-1 Medicine Progress Note for Dr. Hatch: Pt was seen and examined this AM at bedside. Pt states that his chest pain was better in the early AM, but now near noon states that the pain in his chest is a little more noticeable, but still improved from yesterday. He states that otherwise he has no acute complaints. He denies n/v, and states that he can tolerate diet at this time. Pt was transfused a total of 3 units yesterday. Objective - Vital Signs/Intake and Output Vital Signs (last 24 hours): Temp Pulse Resp BP Pulse Ox 98.2 F 62 18 130/68 96 05/01/18 12:00 05/01/18 12:00 05/01/18 12:00 05/01/18 12:00 05/01/18 06:00 Intake and Output: 05/01/18 05/01/18 06:59 18:59 Intake Total 750 Balance 750 - Medications Medications: Current Medications Albuterol/Ipratropium (Duoneb 3 Mg/0.5 Mg (3 Ml) Ud) 3 ml IH Q4H PRN PRN Reason: Shortness of Breath Albuterol/Ipratropium (Duoneb 3 Mg/0.5 Mg (3 Ml) Ud) 3 ml IH [id number] [facility] Last Admin: 05/01/18 13:08 Dose: 3 ml Aspirin (Aspirin Chewable) 81 mg PO DAILY [facility] Last Admin: 04/30/18 11:10 Dose: Not Given Calcium Acetate (Phoslo) 667 mg PO [facility] Furosemide (Lasix) 20 mg IVP Q12 [facility] Last Admin: 05/01/18 10:42 Dose: 20 mg Levofloxacin/Dextrose (Levaquin 750mg) 750 mg IVPB QOTHERDAY [facility]; Protocol Metoprolol Tartrate (Lopressor) 25 mg PO BRKDIN [facility] Last Admin: 05/01/18 10:37 Dose: 25 mg Pantoprazole Sodium (Protonix Inj) 40 mg IVP Q12 [facility] Last Admin: 05/01/18 10:38 Dose: 40 mg - Labs Labs: 05/01/18 06:10 05/01/18 06:10 PT 14.3 SECONDS (9.4-12.5) H 04/29/18 18:00 INR 1.29 04/29/18 18:00 APTT 35.4 Seconds (26.9-38.3) 04/29/18 18:00 - Constitutional Appears: Non-toxic, No Acute Distress - Head Exam Head Exam: ATRAUMATIC, NORMAL INSPECTION, NORMOCEPHALIC - Eye Exam Eye Exam: EOMI, Normal appearance, PERRL - Respiratory Exam Respiratory Exam: Wheezes, NORMAL BREATHING PATTERN. absent: Accessory Muscle Use, Prolonged Expiratory Phase, Rales, Respiratory Distress - Cardiovascular Exam Cardiovascular Exam: RRR, +S1, +S2. absent: Gallop, Rubs - GI/Abdominal Exam GI & Abdominal Exam: Soft, Normal Bowel Sounds. absent: Firm, Guarding, Rigid, Tenderness - Extremities Exam Extremities Exam: Normal Inspection, Pedal Edema (trace pitting edema noted b/l) - Back Exam Back Exam: NORMAL INSPECTION. absent: CVA tenderness (L), CVA tenderness (R) - Neurological Exam Neurological Exam: Alert, Awake, Oriented x3 - Psychiatric Exam Psychiatric exam: Normal Affect, Normal Mood - Skin Skin Exam: Dry, Normal Color, Warm Assessment and Plan - Assessment and Plan (Free Text) Assessment: Patient is a 77 year old male with PMHx of CAD (stent placed 10 years ago), Asthma, SERENA, ?CKD, and cataracts who presented to the ED complaining of chest pain and shortness of breath for 2 hours in duration. Patient will be admitted for Chest Pain r/o ACS, Shortness of Breath 2/2 New Onset CHF Exacerbation, and Symptomatic Anemia. 3 units transfused yesterday, repeat CXR showed possible PNA. Plan: 1) Symptomatic Anemia s/p 3 units PRBCs 04/30/17 - Given Hgb 6.3 on admission, s/p 3 units PRBCs = 8.3 - Goal is to maintain Hgb > 8 considering patient has CAD - GI consulted, Dr. Venegas, will do endoscopy when pt has cardiac clearance 2) Shortness of Breath 2/2 New Onset CHF Exacerbation vs PNA - Lasix 20mg IV q12 - Extra lasix 20 IV due to 3 units of prbc - CXR 05/01/18 - RUL PNA vs CHF - f/u procal - f/u PA & Lateral CXR - duonebs q4 prn - Duonebs q6 harry - BNP 5990 - nasal cannula prn - daily weights - strict ins/outs - Echo 2/ = EF is 51.6, has grade II pseudonormal filling dynamics - Cardiology on consult, Dr perez - TOYA venous doppler - No sonographic evidence of DVT in LE b/l 3) Chest Pain r/o ACS - Trops .06, .08, .05 - Likely 2/2 demand ischemia from anemia - ASA 81mg daily - EKG: NSR at [address] or T wave changes. - TSH - .22L, Free T4 = 1.35 is wnl - Lipid panel - T, Chol = 106, LDL = 67, HDL = 29 - Hemoglobin A1c = 7.1 - CXR: no active cardiopulmonary disease. Hyperinflated lungs and mild flatte rogers of diaphragm. - Cardio consulted, Dr. Perez - recs appreciated 4) ALFREDO with ?CKD Hx - BUN/Cr is 30/2.1 - monitor kidney function - avoid nephrotoxic agents - Nephro consulted (Dr. Hodges) 5) Diarrhea 2/2 Recent Antibiotic Use - c. diff toxin ordered - Recently treated with Levaquin PO 6) Hx CAD - Cont with ASA 81mg daily GI ppx: ptx Diet: Renal diet Dispo: Patient will be monitored on telemetry. Pending x2 units pRBC transfusion . Monitor H/H. Case was discussed and reviewed with Attending Physician, Dr. Mamie Ordonez, PGY-1
[2018-05-01] MEDS ORDERED: levoFLOXacin 500 mg in D5W 500 MG/100 ML BAG IVPB STA (16:42)
[2018-05-01] MEDS ORDERED: Azithromycin 500MG/NS 250ml 500 MG/250 ML BAG IVPB STA (17:10)
[2018-05-01] MEDS: cefTRIAXone 1 gm 1 GM/100 ML BAG IVPB SCH (17:48)
--- NOTE | 2018-05-01 18:34 | PN ---
DATE: 05/01/2018 SUBJECTIVE: The patient is seen lying in bed. He is awake, he is alert. He reports that his cough is somewhat better. His breathing is also better. He denies any chest pain. He denies any palpitations. He is asking for food. PHYSICAL EXAMINATION: GENERAL: Elderly male, lying in bed. VITAL SIGNS: Blood pressure 130/68, heart rate 62, respiratory rate 18, temperature 98.2. HEENT: Normocephalic, atraumatic, positive pallor. NECK: Supple, no JVD. LUNGS: Bilateral equal entry, bilateral rhonchi, the patient complains of pain on deep inspiration on the left side. CARDIAC: S1 and S2, regular rate and rhythm. No murmur, no rub. ABDOMEN: Obese, distended, soft, nontender. Bowel sounds present. EXTREMITIES: No extremity edema. LABORATORY DATA: WBC 12.9, hemoglobin 8.3, hematocrit 25.7, platelets 357. Sodium 135, potassium 4.9, chloride 106, CO2 of 22, BUN 30, creatinine 2.1, glucose 86, calcium 7.9, phosphorus 5.1 magnesium 1.7, albumin 3.6, corrected calcium is 8.1. CT of the abdomen and pelvis; right renal masses, likely hyperdense proteinaceous cysts, cholelithiasis without acute cholecystitis, splenomegaly. Renal ultrasound; a 0.5 cm cyst with eccentric coarse calcification in the lower pole of the right kidney and 2 cm simple cyst in the lower pole of the left kidney. No solid masses. Right kidney 11.5 cm, left kidney 12.1 cm. Chest x-ray, patchy infiltrate in the right upper lobe suspicious for pneumonia. CURRENT MEDICATIONS: Aspirin 81, DuoNeb, Lasix 20 IV every 12 hours, Levaquin 750 every other day, Lopressor 25 b.i.d., Protonix 40 IV every 12 hours. ASSESSMENT: 1. Shortness of breath, cough, right upper lobe infiltrate, community-acquired pneumonia. 2. Chronic kidney disease stage III, suspect. 3. Hyperphosphatemia. 4. Hypocalcemia. 5. Anemia of chronic kidney disease. 6. Cardiorenal syndrome? versus hypertensive nephrosclerosis. PLAN: 1. Continue Lasix 20 mg IV every 12 hours. 2. Follow up intact PTH. 3. Start phosphate binder. 4. Will likely need activated vitamin D3. 5. Etiology of chronic kidney disease unclear. 6. Urinalysis ordered yesterday not done, we will reorder. Elham Hodges MD
--- NOTE | 2018-05-01 23:59 | PN ---
DATE: 05/01/2018 SUBJECTIVE: The patient is seen lying in bed, on telemetry. He states, he is comfortable. His dyspnea has improved. CURRENT MEDICATIONS: His current medications include aspirin, DuoNeb inhaler, Lasix 20 mg IV every 12 hours, metoprolol 25 mg b.i.d., and Protonix. OBJECTIVE: GENERAL: He is an elderly male, appears comfortable at rest. VITAL SIGNS: Blood pressure is 118/50 with pulse of 70 in sinus, respirations 16. He is afebrile. HEENT: No JVD. CHEST: A few scattered rhonchi noted. HEART: PMI displaced laterally with a systolic murmur present at the base as well as at the apex. ABDOMEN: Soft and nontender with normoactive bowel sounds. EXTREMITIES: No edema. DIAGNOSTIC DATA: Potassium 4.9, BUN and creatinine 30 and 2.1. White count 12.9, hemoglobin and hematocrit 8.3 and 25.7 with platelet count 357,000. IMPRESSION: 1. Recent dyspnea, possibly secondary to high output state given the severe anemia and valvular heart disease. 2. Renal insufficiency, uncertain etiology. 3. Mild aortic stenosis. 4. Moderate mitral regurgitation. 5. Mild to moderate aortic insufficiency. RECOMMENDATIONS: His current medications, we will continue for now. Maintenance of hemoglobin above 8 is advised. Renal evaluation should be initiated as well. An interval cardiac assessment with stress testing will be planned. Beta-matilde therapy will be continued for now. We will continue to follow and make further recommendations as needed. Benitez Perez MD MTDD
[2018-05-02] MEDS: Albuterol-Ipratrop 3 mg / 0.5 (3 ml) UD IH SCH ×3 (01:27→13:24)
[2018-05-02] MEDS ORDERED: Alum-Mag Hydrox-Simethicone Susp (30 mL) PO ONE (01:35)
[2018-05-02] MEDS ORDERED: Pantoprazole 40 mg EC Tab PO SCH (06:00)
[2018-05-02 06:29] LABS: MEAN CELL VOLUME 80.7 fl (80.0-105.0); MEAN CORPUSCULAR HEMOGLOBIN 26.6 pg (25.0-35.0); MEAN CORPUSCULAR HGB CONC 32.9 g/dl (31.0-37.0); MEAN PLATELET VOLUME 9.6 fl (7.0-11.0); RBC 3.01 10^6/uL (3.5-6.1); RED CELL DISTRIBUTION WIDTH 28.5 % (11.5-14.5); WHITE BLOOD COUNT 9.7 10^3/uL (4.5-11.0)
[2018-05-02 07:06] LABS: ALB/GLOB RATIO 1.4 (1.1-1.8); ALBUMIN 3.6 g/dL (3.0-4.8); CALCIUM 7.4 mg/dL (8.4-10.5)
[2018-05-02 07:26] VITALS: RESP 18; O2SAT 99
[2018-05-02] MEDS ORDERED: Magnesium Sulfate 1 gm in D5W 1 GM/100 ML BAG IVPB ONE (09:11)
[2018-05-02] MEDS: cefTRIAXone 1 gm 1 GM/100 ML BAG IVPB SCH (09:23)
--- NOTE | 2018-05-02 09:51 | PN ---
DATE: 05/02/2018 SUBJECTIVE: The patient is seen lying in bed on telemetry. He states he is comfortable. He denies any chest pain or dyspnea. CURRENT MEDICATIONS: Include aspirin, DuoNeb inhaler, Lasix 20 mg every 12 hours, metoprolol 25 mg twice a day, PhosLo, Protonix, and Rocephin. OBJECTIVE: GENERAL: He is a elderly man who appears comfortable at rest. VITAL SIGNS: His blood pressure is 122/60 with pulse of 70 in sinus, respirations 16. He is afebrile. HEENT: No JVD. CHEST: Few scattered rhonchi heard. HEART: PMI displaced laterally with systolic murmur at the base radiating to the as well as the apex. ABDOMEN: Soft, nontender with normoactive bowel sounds. EXTREMITIES: No edema. DIAGNOSTIC DATA: The potassium 4.3, BUN and creatinine 31 and 2.3. White count 9.7, hemoglobin and hematocrit 8 and 24.3 with a platelet count 331,000. IMPRESSION: 1. Recent high output decompensating congestive heart failure secondary to severe anemia and multivalvular heart disease. 2. Renal insufficiency, workup in progress. 3. Moderate mitral regurgitation. 4. Mild aortic stenosis. 5. [id number] aortic insufficiency. RECOMMENDATIONS: His current medications will be continued for now. He will remain on a beta-matilde as well. Eventual evaluation with cardiac stress testing is advised. From a cardiac standpoint, he appears stable to undergo upper and lower endoscopy if indicated. We will continue to follow and make further recommendations as appropriate. Benitez Perez MD
[2018-05-02 12:59] VITALS: BP 119/69; PULSE 60; TEMP 98
--- NOTE | 2018-05-02 13:09 | CP.PCM.PN ---
<Linh Nichols - Last Filed: 05/02/18 13:05> Subjective - Date & Time of Evaluation Date of Evaluation: 05/02/18 Time of Evaluation: 13:06 - Subjective Subjective: Gastroenterology Fellow/PGY6 Progress Note for Dr. Venegas Patient sitting in chair comfortably. Tolerating diet. Admits to bowel movement yesterday without melena or hematochezia. A 12-point review of systems negative except for as above. Objective - Vital Signs/Intake and Output Vital Signs (last 24 hours): Temp Pulse Resp BP Pulse Ox 98 F 60 18 119/69 99 05/02/18 12:00 05/02/18 12:00 05/02/18 12:00 05/02/18 12:00 05/02/18 06:00 Intake and Output: 05/02/18 05/02/18 06:59 18:59 Intake Total 2100 Output Total 3 Balance 2097 - Medications Medications: Current Medications Albuterol/Ipratropium (Duoneb 3 Mg/0.5 Mg (3 Ml) Ud) 3 ml IH Q4H PRN PRN Reason: Shortness of Breath Albuterol/Ipratropium (Duoneb 3 Mg/0.5 Mg (3 Ml) Ud) [id number] [facility] Last Admin: 05/02/18 08:10 Dose: 3 ml Aspirin (Aspirin Chewable) [address] [facility] Last Admin: 04/30/18 11:10 Dose: Not Given Calcium Acetate (Phoslo) [address] [facility] Last Admin: 05/02/18 09:23 Dose: 667 mg Furosemide (Lasix) [address] [facility] Last Admin: 05/02/18 09:22 Dose: 20 mg Ceftriaxone Sodium (Rocephin 1 Gram Ivpb) 1 gm in 100 mls @ 100 mls/hr IVPB DAILY [facility]; Protocol Last Admin: 05/02/18 09:23 Dose: 100 mls/hr Metoprolol Tartrate (Lopressor) [address] [facility] Last Admin: 05/02/18 09:22 Dose: 25 mg Pantoprazole Sodium (Protonix Ec Tab) [address] [facility] Last Admin: 05/02/18 08:17 Dose: Not Given - Labs Labs: 05/02/18 06:10 05/02/18 06:10 PT 14.3 SECONDS (9.4-12.5) H 04/29/18 18:00 INR 1.29 04/29/18 18:00 APTT 35.4 Seconds (26.9-38.3) 04/29/18 18:00 - Constitutional Appears: Non-toxic, No Acute Distress - Head Exam Head Exam: ATRAUMATIC, NORMOCEPHALIC - Eye Exam Eye Exam: EOMI, PERRL. absent: Scleral icterus Pupil Exam: PERRL. absent: Miosis, Mydriatic - ENT Exam ENT Exam: Mucous Membranes Moist, Normal Oropharynx - Neck Exam Neck Exam: Full ROM, Normal Inspection - Respiratory Exam Respiratory Exam: Clear to Ausculation Bilateral. absent: Rales, Rhonchi, Wheezes - Cardiovascular Exam Cardiovascular Exam: RRR, +S1, +S2. absent: Gallop, Rubs - GI/Abdominal Exam GI & Abdominal Exam: Soft, Normal Bowel Sounds. absent: Distended, Firm, Guarding, Rigid, Tenderness, Organomegaly, Rebound - Extremities Exam Extremities Exam: Normal Inspection, Pedal Edema - Neurological Exam Neurological Exam: Alert, Awake - Psychiatric Exam Psychiatric exam: Normal Affect, Normal Mood - Skin Skin Exam: Dry, Intact, Normal Color, Warm Assessment and Plan - Assessment and Plan (Free Text) Assessment: 77 year old male with PMH of SERENA, Asthma, and CAD s/p PCI presenting with chest pain and shortness of breath. Active treatment of CHF decompensation, microcytic anemia, and renal insufficiency. Endorses prior colonoscopy within the last 7-10 years to be normal. No prior EGD. Plan: -no overt signs of acute GI bleed -s/p 3 units pRBCs -H/H stable -CT A/P - no acute intra-abdominal pathology -continue PPI BID -cardiac clearance noted for endoscopy -will benefit from EGD and colonoscopy for anemia workup, scheduling of proc edures to be discussed with Dr. Venegas -will follow clinical course Case discussed with Dr. Venegas <Kezia Venegas V - Last Filed: 05/03/18 00:45> Objective - Vital Signs/Intake and Output Vital Signs (last 24 hours): Temp Pulse Resp BP Pulse Ox 98 F 60 18 119/69 99 05/02/18 12:00 05/02/18 12:00 05/02/18 12:00 05/02/18 12:00 05/02/18 06:00 - Labs Labs: 05/02/18 06:10 05/02/18 06:10 PT 14.3 SECONDS (9.4-12.5) H 04/29/18 18:00 INR 1.29 04/29/18 18:00 APTT 35.4 Seconds (26.9-38.3) 04/29/18 18:00 Attending/Attestation - Attestation I have personally seen and examined this patient.: Yes I have fully participated in the care of the patient.: Yes I have reviewed all pertinent clinical information, including history, physical exam and plan: Yes Notes (Text): p 05/03/18 00:44
--- NOTE | 2018-05-02 15:49 | CP.PCM.DIS ---
<Nir Ordonez - Last Filed: 05/02/18 23:01> Provider - Provider Date of Admission: 04/29/18 19:31 Attending physician: Diamond Hatch MD Primary care physician: David Guadarrama MD Consults: 04/29/18 22:09 Physician Consult Routine Comment: Consulting Provider: Kezia Venegas V Consulting Physician: Kezia Venegas V Reason for Consult: anemia; no colonoscopy; consider GI malignancy 04/29/18 22:14 Physician Consult Routine Comment: Consulting Provider: Elham Hodges Consulting Physician: Elham Hodges Reason for Consult: ?CKD Hx 04/29/18 23:11 Physician Consult Routine Comment: Consulting Provider: Isac Ashley Consulting Physician: Isac Ashley Reason for Consult: Possible new onset CHF Time Spent in preparation of Discharge (in minutes): 45 Diagnosis - Discharge Diagnosis (1) Anemia Status: Acute (2) CHF (congestive heart failure) Status: Acute Hospital Course - Lab Results Lab Results: Micro Results 05/01/18 13:30 Blood Blood Culture - Preliminary NO GROWTH AFTER 24 HOURS 05/01/18 13:30 Blood Blood Culture - Preliminary NO GROWTH AFTER 24 HOURS Most Recent Lab Values WBC 9.7 10^3/uL (4.5-11.0) D 05/02/18 06:10 RBC 3.01 10^6/uL (3.5-6.1) L 05/02/18 06:10 Hgb 8.0 g/dL (14.0-18.0) L 05/02/18 06:10 Hct 24.3 % (42.0-52.0) L 05/02/18 06:10 MCV 80.7 fl (80.0-105.0) 05/02/18 06:10 MCH 26.6 pg (25.0-35.0) 05/02/18 06:10 MCHC 32.9 g/dl (31.0-37.0) 05/02/18 06:10 RDW 28.5 % (11.5-14.5) H 05/02/18 06:10 Plt Count 331 10^3/uL (120.0-450.0) 05/02/18 06:10 MPV 9.6 fl (7.0-11.0) 05/02/18 06:10 Neut % (Auto) 86.2 % (50.0-68.0) H 04/29/18 17:50 Lymph % (Auto) 6.7 % (22.0-35.0) L 04/29/18 17:50 [place] % (Auto) 5.0 % (1.0-6.0) 04/29/18 17:50 Eos % (Auto) 1.4 % (1.5-5.0) L 04/29/18 17:50 Baso % (Auto) 0.7 % (0.0-3.0) 04/29/18 17:50 Lymph # (Auto) 0.9 (1.2-3.4) L 04/29/18 17:50 [place] # (Auto) 0.7 (0.1-0.6) H 04/29/18 17:50 Eos # (Auto) 0.2 (0.0-0.7) 04/29/18 17:50 Baso # (Auto) 0.10 K/mm3 (0.0-2.0) 04/29/18 17:50 Absolute Neuts (auto) 12.07 (1.4-6.5) H 04/29/18 17:50 Retic Count 1.35 % (0.5-1.5) 04/30/18 02:50 PT 14.3 SECONDS (9.4-12.5) H 04/29/18 18:00 INR 1.29 04/29/18 18:00 APTT 35.4 Seconds (26.9-38.3) 04/29/18 18:00 D-Dimer, Quantitative 309 ng/mlDDU (0-243) H 04/29/18 22:00 Sodium 136 mmol/L (132-148) 05/02/18 06:10 Potassium 4.3 mmol/L (3.6-5.0) 05/02/18 06:10 Chloride 105 mmol/L (98-107) 05/02/18 06:10 Carbon Dioxide 23 mmol/L (21-33) 05/02/18 06:10 Anion Gap 12 (10-20) 05/02/18 06:10 BUN 31 mg/dL (7-21) H 05/02/18 06:10 Creatinine 2.3 mg/dl (0.8-1.5) H 05/02/18 06:10 Est GFR ( Amer) 34 05/02/18 06:10 Est GFR (Non-Af Amer) 28 05/02/18 06:10 Random Glucose 89 mg/dL (70-110) 05/02/18 06:10 Hemoglobin A1c 7.1 % (4.2-6.5) H 04/29/18 22:00 Calcium 7.4 mg/dL (8.4-10.5) L 05/02/18 06:10 Phosphorus 5.0 mg/dL (2.5-4.5) H 05/02/18 06:10 Magnesium 1.6 mg/dL (1.7-2.2) L 05/02/18 06:10 Iron 48 ug/dL (45-180) 04/30/18 14:00 TIBC 212 ug/dL (261-462) L 04/30/18 14:00 % Saturation 22 % (20-55) 04/30/18 14:00 Transferrin 154.58 mg/dL (206-381) L 04/29/18 22:30 Ferritin 408.0 ng/mL 04/30/18 14:00 Total Bilirubin 0.3 mg/dL (0.2-1.3) 05/02/18 06:10 AST 34 U/L (17-59) 05/02/18 06:10 ALT 17 U/L (7-56) 05/02/18 06:10 Alkaline Phosphatase 82 U/L (38-126) 05/02/18 06:10 Lactate Dehydrogenase 603 U/L (333-699) 04/30/18 09:50 Troponin I 0.05 ng/mL D 04/30/18 09:50 NT-Pro-B Natriuret Pep 5990 pg/mL (0-450) H 04/29/18 17:50 Total Protein 6.2 g/dL (5.8-8.3) 05/02/18 06:10 Albumin 3.6 g/dL (3.0-4.8) 05/02/18 06:10 Globulin 2.6 gm/dL 05/02/18 06:10 Albumin/Globulin Ratio 1.4 (1.1-1.8) 05/02/18 06:10 Triglycerides 64 mg/dL (35-160) 04/29/18 22:00 Cholesterol 106 mg/dL (130-200) L 04/29/18 22:00 LDL Cholesterol Direct 67 mg/dL (0-129) 04/29/18 22:00 HDL Cholesterol 29 mg/dL (29-60) 04/29/18 22:00 Vitamin B12 732 pg/mL (239-931) 04/29/18 22:00 Folate > 20.0 ng/mL 04/29/18 22:00 Procalcitonin 0.06 NG/ML (0.19-0.49) L 05/01/18 14:00 Free T4 1.35 ng/dL (0.78-2.19) 04/30/18 09:50 TSH 3rd Generation 0.22 mIU/mL (0.46-4.68) L 04/29/18 22:30 PTH Intact Whole Molec 158 pg/mL (14-64) H 04/30/18 14:00 Blood Type O POSITIVE 04/29/18 19:00 Blood Type Confirm O POSITIVE 04/29/18 20:04 Antibody Screen Negative 04/29/18 19:00 Crossmatch See Detail 04/29/18 19:00 BBK History Checked No verified bt 04/29/18 19:00 - Hospital Course Hospital Course: Upon Admission: Patient is a 77 year old male with PMHx of CAD (stent placed 10 years ago), Asthma, SERENA, ?CKD, and cataracts who presented to the ED complaining of chest pain and shortness of breath for 2 hours in duration. In the ED, Vitals: Temp 98, HR 73, RR 18, BP 143/67, SaO2 98%. Medical team was consulted for evaluation. Patient describes the chest pain as pressure-like and located mid- sternum and left sided. He says that it occasionally radiates to his arm. The chest pain is not associated with exertion. Patient says that he has had episodes of chest pain in the past. He also endorses shortness of breath. He said that he noticed increased swelling in his legs. He also notes orthopnea. Patient said he was sick recently with cough and sputum production and went to his PMD who treated him with PO antibiotic (Levaquin) for which he started to have multiple episodes of diarrhea. He said he had episodes of non-bloody diarrhea x3 days for several days. He is no longer taking his Levaquin. Patient is also a poor historian. 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 He denies any history of cancer, recent surgeries, or recent sedentary lifestyle. He has never had a colonoscopy. Hospital Course: Pt was being worked up for his anemia and chest pain. Pt had CXR done in the ED which showed hyperinflated lungs and suspicions for COPD. Cardio was also consulted to evaluate the pts chest pain. Trops were checked x3 and were found to be slightly elevated. Pt was also noted to have anemia on labs, and the chest pain was likely thought to be 2/2 demand ischemia caused by the pts anemia. Pts anemia was treated with 3 units of PRBC transfusion. The pt did no respond appropriately to the first 2 units, but did respond appropriately to the third unit. Cardio wanted to do future stress test to further evaluate the pts cardiac status. GI was consulted for the pts anemia and the team was awaiting Cardio clearance for the endoscopy. Cardio cleared the pt for upper and lower endoscopy. GI team had tentative plan for scope on Saturday. Pt also was being worke dup for ALFREDO on unknown CKD hx, pt was given light fluid hydration with im provement in his kidney function labs. Pt also was noted to have some SOB, repeat CXR after the 3 units showed a PNA vs CHF exacerbation. Abx were started, procal ordered as were blood cultures. Repeat PA and Later CXR was ordered to better evaluate between CHF and PNA. Pt stated that he no longer wanted to stay until Saturday. The risks and benefits of leaving were explained to the pt and it was explained that the pt could experience worsening of a GI bleed, which would worsen his anemia and could cause weakness, injury to the heart, brain and other major organs which would lead to permanent disability or even . Pt stated that he would take time to think about signing out and would like to discuss things with the GI team prior to making his decision. Pt then eloped from the hospital. Discharge Exam - Additional Findings Additional findings: Pts Physical exam was unable to be performed due to the pt eloping from the hospital. Discharge Plan - Follow Up Plan Condition: GOOD Disposition: ELOPED FROM NURSING UNIT Referrals: David Guadarrama MD [Primary Care Provider] - <Chino Coley - Last Filed: 05/03/18 14:21> Provider - Provider Date of Admission: 04/29/18 19:31 Attending physician: Diamond Hatch MD Primary care physician: David Guadarrama MD Consults: 04/29/18 22:09 Physician Consult Routine Comment: Consulting Provider: Kezia Venegas V Consulting Physician: Kezia Venegas V Reason for Consult: anemia; no colonoscopy; consider GI malignancy 04/29/18 22:14 Physician Consult Routine Comment: Consulting Provider: Elham Hodges Consulting Physician: Elham Hodges Reason for Consult: ?CKD Hx 04/29/18 23:11 Physician Consult Routine Comment: Consulting Provider: Isac Ashley Consulting Physician: Isac Ashley Reason for Consult: Possible new onset CHF Hospital Course - Lab Results Lab Results: Micro Results 05/01/18 13:30 Blood Blood Culture - Preliminary NO GROWTH AFTER 48 HOURS 05/01/18 13:30 Blood Blood Culture - Preliminary NO GROWTH AFTER 48 HOURS Most Recent Lab Values WBC 9.7 10^3/uL (4.5-11.0) D 05/02/18 06:10 RBC 3.01 10^6/uL (3.5-6.1) L 05/02/18 06:10 Hgb 8.0 g/dL (14.0-18.0) L 05/02/18 06:10 Hct 24.3 % (42.0-52.0) L 05/02/18 06:10 MCV 80.7 fl (80.0-105.0) 05/02/18 06:10 MCH 26.6 pg (25.0-35.0) 05/02/18 06:10 MCHC 32.9 g/dl (31.0-37.0) 05/02/18 06:10 RDW 28.5 % (11.5-14.5) H 05/02/18 06:10 Plt Count 331 10^3/uL (120.0-450.0) 05/02/18 06:10 MPV 9.6 fl (7.0-11.0) 05/02/18 06:10 Neut % (Auto) 86.2 % (50.0-68.0) H 04/29/18 17:50 Lymph % (Auto) 6.7 % (22.0-35.0) L 04/29/18 17:50 [place] % (Auto) 5.0 % (1.0-6.0) 04/29/18 17:50 Eos % (Auto) 1.4 % (1.5-5.0) L 04/29/18 17:50 Baso % (Auto) 0.7 % (0.0-3.0) 04/29/18 17:50 Lymph # (Auto) 0.9 (1.2-3.4) L 04/29/18 17:50 [place] # (Auto) 0.7 (0.1-0.6) H 04/29/18 17:50 Eos # (Auto) 0.2 (0.0-0.7) 04/29/18 17:50 Baso # (Auto) 0.10 K/mm3 (0.0-2.0) 04/29/18 17:50 Absolute Neuts (auto) 12.07 (1.4-6.5) H 04/29/18 17:50 Retic Count 1.35 % (0.5-1.5) 04/30/18 02:50 PT 14.3 SECONDS (9.4-12.5) H 04/29/18 18:00 INR 1.29 04/29/18 18:00 APTT 35.4 Seconds (26.9-38.3) 04/29/18 18:00 D-Dimer, Quantitative 309 ng/mlDDU (0-243) H 04/29/18 22:00 Sodium 136 mmol/L (132-148) 05/02/18 06:10 Potassium 4.3 mmol/L (3.6-5.0) 05/02/18 06:10 Chloride 105 mmol/L (98-107) 05/02/18 06:10 Carbon Dioxide 23 mmol/L (21-33) 05/02/18 06:10 Anion Gap 12 (10-20) 05/02/18 06:10 BUN 31 mg/dL (7-21) H 05/02/18 06:10 Creatinine 2.3 mg/dl (0.8-1.5) H 05/02/18 06:10 Est GFR ( Amer) 34 05/02/18 06:10 Est GFR (Non-Af Amer) 28 05/02/18 06:10 Random Glucose 89 mg/dL (70-110) 05/02/18 06:10 Hemoglobin A1c 7.1 % (4.2-6.5) H 04/29/18 22:00 Calcium 7.4 mg/dL (8.4-10.5) L 05/02/18 06:10 Phosphorus 5.0 mg/dL (2.5-4.5) H 05/02/18 06:10 Magnesium 1.6 mg/dL (1.7-2.2) L 05/02/18 06:10 Iron 48 ug/dL (45-180) 04/30/18 14:00 TIBC 212 ug/dL (261-462) L 04/30/18 14:00 % Saturation 22 % (20-55) 04/30/18 14:00 Transferrin 154.58 mg/dL (206-381) L 04/29/18 22:30 Ferritin 408.0 ng/mL 04/30/18 14:00 Total Bilirubin 0.3 mg/dL (0.2-1.3) 05/02/18 06:10 AST 34 U/L (17-59) 05/02/18 06:10 ALT 17 U/L (7-56) 05/02/18 06:10 Alkaline Phosphatase 82 U/L (38-126) 05/02/18 06:10 Lactate Dehydrogenase 603 U/L (333-699) 04/30/18 09:50 Troponin I 0.05 ng/mL D 04/30/18 09:50 NT-Pro-B Natriuret Pep 5990 pg/mL (0-450) H 04/29/18 17:50 Total Protein 6.2 g/dL (5.8-8.3) 05/02/18 06:10 Albumin 3.6 g/dL (3.0-4.8) 05/02/18 06:10 Globulin 2.6 gm/dL 05/02/18 06:10 Albumin/Globulin Ratio 1.4 (1.1-1.8) 05/02/18 06:10 Triglycerides 64 mg/dL (35-160) 04/29/18 22:00 Cholesterol 106 mg/dL (130-200) L 04/29/18 22:00 LDL Cholesterol Direct 67 mg/dL (0-129) 04/29/18 22:00 HDL Cholesterol 29 mg/dL (29-60) 04/29/18 22:00 Vitamin B12 732 pg/mL (239-931) 04/29/18 22:00 Folate > 20.0 ng/mL 04/29/18 22:00 Procalcitonin 0.06 NG/ML (0.19-0.49) L 05/01/18 14:00 Free T4 1.35 ng/dL (0.78-2.19) 04/30/18 09:50 TSH 3rd Generation 0.22 mIU/mL (0.46-4.68) L 04/29/18 22:30 PTH Intact Whole Molec 158 pg/mL (14-64) H 04/30/18 14:00 Blood Type O POSITIVE 04/29/18 19:00 Blood Type Confirm O POSITIVE 04/29/18 20:04 Antibody Screen Negative 04/29/18 19:00 Crossmatch See Detail 04/29/18 19:00 BBK History Checked No verified bt 04/29/18 19:00 Attending/Attestation - Attestation I have personally seen and examined this patient.: Yes I have fully participated in the care of the patient.: Yes I have reviewed all pertinent clinical information, including history, physical exam and plan: Yes Notes (Text): 05/03/18 14:18 Pt eloped before I could evaluate him. Nursing documentation in chart
--- NOTE | 2018-05-02 17:45 | RAD ---
Date of service: 05/02/2018 HISTORY: Possible PNA vs CHF COMPARISON: 05/01/2018 TECHNIQUE: Chest PA and lateral FINDINGS: LUNGS: No active pulmonary disease. PLEURA: Blunting of right costophrenic angle and right costophrenic sulcus. Possible small right pleural effusion. No left pleural effusion. No pneumothorax CARDIOVASCULAR: No aortic atherosclerotic calcification present. Normal cardiac size. No pulmonary vascular congestion. OSSEOUS STRUCTURES: No significant abnormalities. VISUALIZED UPPER ABDOMEN: Normal. OTHER FINDINGS: None. IMPRESSION: Likely small right pleural effusion. No infiltrate
[2018-05-03] MEDS ORDERED: levoFLOXacin 750 mg in D5W 150 ML BAG IVPB SCH (10:00)
== END 2018-05-02 13:47 | disposition left against medical advice (07) | DRG 292 ==
LOC: ED 16:31 → ERH 19:31 → 2RNO 04-30 00:27
PROVIDERS: ADMIT Internal Medicine; ATTEND Internal Medicine
PROC: 30233N1 Transfusion of Nonautologous Red Blood Cells into Peripheral Vein, Percutaneous Approach (ICD-10-PCS; principal; 2018-04-29)
DX: I50.33 Acute on chronic diastolic (congestive) heart failure (principal); N25.81 Secondary hyperparathyroidism of renal origin; I50.83 High output heart failure; I25.10 Atherosclerotic heart disease of native coronary artery without angina pectoris; N18.3 Chronic kidney disease, stage 3 (moderate); D63.1 Anemia in chronic kidney disease; J45.909 Unspecified asthma, uncomplicated; G47.33 Obstructive sleep apnea (adult) (pediatric); E83.51 Hypocalcemia; F17.290 Nicotine dependence, other tobacco product, uncomplicated; I08.0 Rheumatic disorders of both mitral and aortic valves; R19.7 Diarrhea, unspecified; T36.8X5A Adverse effect of other systemic antibiotics, initial encounter; Z95.5 Presence of coronary angioplasty implant and graft

== ENCOUNTER 2018-06-23 07:19 | Outpatient (CLI) | payer MEDICARE | END 2018-06-23 07:20 | disposition home or self-care (01) | LOC: CARDIO 07:19 ==